=== PATIENT | female | born 1995 | race Caucasian/White ===

== ENCOUNTER 2019-06-19 10:50 | Emergency (ER) | payer MEDICAID ==
[2019-06-19 11:36] LABS: BASOPHILS % (AUTO) 0.5 % (0.0-5.0); EOSINOPHILS % (AUTO) 1.9 % (0.0-8.0); HEMATOCRIT 39.7 % (36-48); LYMPHOCYTES % (AUTO) 21.6 % (21.0-51.0); MEAN CORPUSCULAR HEMOGLOBIN 31.5 pg (27.0-33.0); MEAN CORPUSCULAR VOLUME 92.5 fL (79-99); NEUTROPHILS % (AUTO) 68.3 % (40.0-77.0); PLATELET COUNT (AUTO) 215 K/uL (130-400); RED BLOOD CELL COUNT(AUTO) 4.29 MIL/uL (4.00-5.50); WHITE BLOOD COUNT (AUTO) 9.7 K/uL (4.8-10.8)
[2019-06-19 11:45] LABS: APPEARANCE,URINE Clear (CLEAR); BILIRUBIN,URINE Negative (NEGATIVE); COLOR,URINE Yellow (YELLOW); GLUCOSE, URINE (UA) Negative (NEGATIVE); KETONES,URINE Negative (NEGATIVE); LEUKOCYTE ESTERASE ,URINE Negative (NEGATIVE); NITRATE,URINE Negative (NEGATIVE); OCCULT BLOOD,URINE Negative (NEGATIVE); PH,URINE 6.5 (5.0-8.0); PROTEIN,URINE Negative (NEGATIVE)
[2019-06-19 11:46] LABS: CREATININE 1.1 mg/dL (0.5-1.5)
[2019-06-19 11:52] LABS: INR 0.97 (0.85-1.15); PARTIAL THROMBOPLASTIN TIME 26.4 SEC (26.3-35.5); PROTHROMBIN TIME 10.5 SEC (9.6-11.6)
[2019-06-19 12:12] LABS: ALBUMIN 3.3 g/dL (3.5-5.0); BILIRUBIN,TOTAL 0.5 mg/dL (0.2-1.0); TOTAL PROTEIN, SERUM 7.3 g/dL (6.0-8.3)
== END 2019-06-19 14:19 | disposition home or self-care (01) ==
LOC: EDH 10:50
DX: O20.0 Threatened abortion (principal); I10 Essential (primary) hypertension; Z3A.01 Less than 8 weeks gestation of pregnancy; Z88.5 Allergy status to narcotic agent
CPT/HCPCS: 36415; 76801; 80053; 81003; 84702; 85025; 85610; 85730; 86900; 86901

== ENCOUNTER 2024-11-06 09:30 | Inpatient (IN) | payer SELFPAY ==
[~2024-11-06] VITALS: Ht 170.2 cm; Wt 85.9 kg
[~2024-11-06 09:30] MED LIST: NITR100C4 PO
[2024-11-06 10:03] LABS: IMMATURE GRANULOCYTE ABSOLUTE 0.03 K/uL (0-1); NUCLEATED RED BLOOD CELLS 0.0 % (0.0-0.19); PLATELET COUNT (AUTO) 260 K/uL (130-400); RED BLOOD CELL COUNT(AUTO) 4.20 MIL/uL (4.00-5.50); RED CELL DISTRIBUTION WIDTH 12.3 % (11.0-15.5); WHITE BLOOD COUNT (AUTO) 6.9 K/uL (4.8-10.8)
[2024-11-06 10:09] LABS: CREATININE 1.1 mg/dL (0.5-1.0); GLOMERULAR FILTR. RATE CALC 69.0 mL/min (>90); GLUCOSE,RANDOM 116.0 mg/dL (70-105); SODIUM SERUM 140.0 mmol/L (136-145); UREA NITROGEN, BLOOD 14.0 mg/dL (7-18)
[2024-11-06] MEDS: 0.9%NACL 1000ML 1,000 ML IV ONE (10:13)
--- NOTE | 2024-11-06 10:16 | ERN ---
General Chief Complaint: Flank Pain Stated Complaint: FLANK PAIN Time Seen by MD: 09:32 Source: patient History of Present Illness Initial Comments Patient is a 29-year-old female coming in with left flank pain. Patient states that the pain initiates in the lower back region radiating to the left inguinal area. She quantifies the pain at 10/10 sharp radiating to the inguinal area. She also complains of mild nauseousness. Allergies: Coded Allergies: meperidine (Unverified Allergy, Unknown, HIVES, 12/19/23) Home Meds Active Scripts Nitrofurantoin Monohyd/M-Cryst (Macrobid 100 mg Capsule) 100 Mg Capsule, 100 MG PO BID for 5 Days, #10 CAP Prov:MAGUE BULL MD 12/19/23 Past Medical History Past Medical History: Other Medical History Other: gastric bypass Past Surgical History: Bariatric Surgery Female( History) : 5 Para: 2 Aborts: 2 ROS Dictation CONSTITUTIONAL: No chills, no fever, no weakness, no diaphoresis, no malaise. HEAD/FACE: No signs of trauma. EENT: No eye pain, no blurred vision, no tearing, no double vision, no ear pain, no ear discharge, no nose pain, no nasal congestion, no throat pain, no throat swelling, no mouth pain. RESPIRATORY: No cough, no orthopnea, no SOB, no stridor, no wheezing. CARDIOVASCULAR: No chest pain, no edema, no palpitations, no syncope. GASTROINTESTINAL/ABDOMINAL: abdominal pain, no constipation, no diarrhea, no nausea, no vomiting. GENITOURINARY: No abnormal discharge, no dysuria, no frequent urination, no hematuria. No complaints of pain in the genitals. MUSCULOSKELETAL: No back pain, no gout, no joint pain, no joint swelling, no muscle pain, no muscle stiffness, no neck pain. INTEGUMENTARY: No change in color, no change in hair/nails, no dryness, no lesion, no lumps, no rash. NEUROLOGICAL/PSYCH: No anxiety, not depressed, no emotional problem, no headache, no numbness, no pre-existing deficit, no history of seizures, no ashok mors, no weakness. HEMATOLOGIC/LYMPHATIC: Not anemic, no history of blood clots, no apparent bleeding, no bruising, glands not swollen. All Systems Negative, Except as Noted. Physical Exam Physical Exam Dictation VITAL SIGNS: Reviewed. GENERAL APPEARANCE: Alert, oriented x3, no acute distress, obese. HEAD AND FACE: Non-traumatic. EYES: PERRL, pink conjunctivas, eyelid no trauma, anterior chamber clear. EARS: Pinnas intact and no signs of trauma or erythema. Ear canals clear and no discharge. TMs no erythema. NOSE: No discharge, no bleeding. OROPHARYNX: Mouth normal, teeth no caries, tongue pink. Pharynx clear, no erythema. Tonsils no exudates, no abscesses noted. Mucous membrane moist. NECK: Supple, non-tender, no thyromegaly, no masses, no JVD, no bruits. BREAST: Deferred. CHEST: No tenderness, no crepitus, no paradoxical movement, no retractions. LUNGS: Clear, well-ventilated, symmetric, no rales, no wheezing, no rhonchi, no stridor, good breath sounds bilaterally. HEART: Regular rate, regular rhythm, no murmur, no gallops. VASCULAR: No peripheral edema. ABDOMEN: Soft, positive bowel sounds, nondistended, no guarding, left flank tenderness on palpation, no rebound, no masses no hepatomegaly, no splenomegaly, no Shay's sign, no hernias. RECTAL: Deferred. GENITAL: Deferred. NEUROLOGICAL: Normal speech, gross motor function intact, gross sensory function intact. MUSCULOSKELETAL: Neck nontender, full range of motion, back nontender, full range of motion. EXTREMITIES: Nontender, full range of motion. SKIN: Color pink, dry, no turgor, no rash, no lacerations, no abrasions, no contusions. LYMPHATICS: Deferred. Results Laboratory and Microbiology Lab and Micro Result Laboratory Tests Test 11/06/24 09:47 11/06/24 12:51 White Blood Count 6.9 K/uL (4.8-10.8) Red Blood Count 4.20 MIL/uL (4.00-5.50) Hemoglobin 13.8 g/dL (12.0-16.0) Hematocrit 39.8 % (36-48) Mean Corpuscular Volume 94.8 fL (79-99) Mean Corpuscular Hemoglobin 32.9 pg (27.0-33.0) Mean Corpuscular Hemoglobin Concent 34.7 g/dL (32.0-36.0) Red Cell Distribution Width 12.3 % (11.0-15.5) Platelet Count 260 K/uL (130-400) Mean Platelet Volume 10.0 fL (7.5-10.5) Immature Granulocyte % (Auto) 0.4 % (0-1) Neutrophils (%) (Auto) 59.4 % (40.0-77.0) Lymphocytes (%) (Auto) 29.4 % (21.0-51.0) Monocytes (%) (Auto) 5.4 % (3.0-13.0) Eosinophils (%) (Auto) 4.5 % (0.0-8.0) Basophils (%) (Auto) 0.9 % (0.0-5.0) Neutrophils # (Auto) 4.1 K/uL (1.8-7.7) Lymphocytes # (Auto) 2.0 K/uL (1.0-4.8) Monocytes # (Auto) 0.4 K/uL (0.1-1.0) Eosinophils # (Auto) 0.31 K/uL (0.00-0.70) Basophils # (Auto) 0.06 K/uL (0.00-0.20) Absolute Immature Granulocyte (auto 0.03 K/uL (0-1) Nucleated Red Blood Cells 0.0 % (0.0-0.19) Sodium Level 140 mmol/L (136-145) Potassium Level 4.6 mmol/L (3.5-5.1) Chloride Level 104 mmol/L (101-111) Carbon Dioxide Level 29 mmol/L (21-32) Blood Urea Nitrogen 14 mg/dL (7-18) Creatinine 1.1 mg/dL (0.5-1.0) H Glomerular Filtration Rate Calc 69 mL/min (>90) Random Glucose 116 mg/dL (70-105) H Total Calcium 9.6 mg/dL (8.5-10.1) Urine Color YELLOW (YELLOW) Urine Appearance CLEAR (CLEAR) Urine pH 6.5 (5.0-8.0) Urine Specific [place] 1.024 (1.001-1.031) Urine Protein NEGATIVE mg/dL (NEGATIVE) Urine Glucose (UA) NEGATIVE mg/dL (NEGATIVE) Urine Ketones NEGATIVE mg/dL (NEGATIVE) Urine Occult Blood MODERATE (NEGATIVE) H Urine Nitrate NEGATIVE (NEGATIVE) Urine Bilirubin NEGATIVE mg/dL (NEGATIVE) Urine Urobilinogen 0.2 mg/dL (0.2-1.0) Urine Leukocyte Esterase NEGATIVE Caroline/uL Urine RBC 2-5 /HPF (0-1) H Urine WBC 0-1 /HPF (0-1) Urine Squamous Epithelial Cells FEW /HPF (0-2) Urine Bacteria None /HPF (None Seen) Urine HCG, Qualitative NEGATIVE (NEGATIVE) Urine Opiates Screen NEGATIVE (NEGATIVE) Urine Barbiturates Screen NEGATIVE (NEGATIVE) Urine Phencyclidine Screen NEGATIVE (NEGATIVE) Urine Amphetamines Screen NEGATIVE (NEGATIVE) Urine Benzodiazepines Screen NEGATIVE (NEGATIVE) Urine Cocaine Screen NEGATIVE (NEGATIVE) Urine Marijuana (THC) Screen POSITIVE (NEGATIVE) H Labs Reviewed?: Yes EKG/XRAY/US/CT/MRI CT Scan Comment [place] [id number] [place] [id number] IMAGING REPORT Signed PATIENT: WENCESLAO WHITE MR#: [id number] : 1995 SEX: F AGE: 29 LOCATION: [facility] ORDER 31 STATUS: REG ER REPORT#: [id number] SERVICE 133 REASON: left flank ORDERING PHYSICIAN: XENIA DAMON MD PROCEDURE: ABD PEL WO - CT ABDOMEN/PELVIS W/O CONTRAST EXAM: CT Abdomen and Pelvis Without IV contrast CLINICAL HISTORY: left flank TECHNIQUE: Axial computed tomography images of the abdomen and pelvis without intravenous contrast. CONTRAST: No IV contrast. COMPARISON: None provided. FINDINGS: LUNG BASES: The lung bases appear clear. No pleural effusions are seen. LIVER: The liver appears enlarged in size with the right lobe measuring 20 cm, suggestive of hepatomegaly. Periportal oedema present. GALLBLADDER AND BILE DUCTS: The gallbladder appears within normal limits. No radioopaque gallstones are seen. No biliary ductal dilatation is evident. PANCREAS: Unremarkable. SPLEEN: Unremarkable. ADRENAL GLANDS: Unremarkable. KIDNEYS, URETERS, AND BLADDER: 6 mm sized calculus (mean density 1192 HU) in the left pelviureteric junction with back pressure changes in the form of mild hydronephrosis with perinephric fluid and fat stranding. The left kidney appears bulky. The right kidney appears within normal limits. STOMACH AND BOWEL: Stomach postsurgical changes. No evidence of bowel obstruction. No evidence suggesting enteritis or colitis. APPENDIX: No evidence of acute appendicitis on CT examination. PERITONEUM: No free fluid. No free air. LYMPH NODES: No lymphadenopathy is evident. REPRODUCTIVE: Unremarkable as visualized. VASCULATURE: No evidence of abdominal aortic aneurysm. BONES: No aggressive appearing osseous lesion. No acute osseous pathology evident. IMPRESSION: 1. Left pelviureteric junction 6 mm calculus with mild hydronephrosis, perinephric fluid and fat stranding. 2. Hepatomegaly /[place] DICTATED BY: SHAYNE GARZA Jr., MD DATE: 11/06/241624 ELECTRONICALLY SIGNED BY: SHAYNE GARZA Jr., MD DATE: 11/06/241624 MDM MDM: Differential diagnosis:, intractable pain,ureter stone Rationale: Tests considered and ordered secondary to shared decision making include: Previous outside records reviewed: Old ER visits. Risk of complication and/or morbidity or mortality of patient management: None Medications-Per medication reconciliation Need for hospitalization: Patient does meet criteria for hospitalization. Need for emergency major/minor surgery: No There are no social concerns with this patient. Prescription drug management Prescriptions will include symptomatic care Patient's prior external medical records from other ER visits were reviewed by me as indicated. Prior testing and results from previous visits were reviewed. Prior tests were taken into account with medical decision making and resource utilization, independent historian/historians were used to obtain complete medic al history. I independently interpreted the test that were performed, results were reviewed by me and considered findings on radiology if ordered. Medical management and examination interpretation discussions were had by me with other qualified healthcare professionals as indicated for the patient's care. Patient will be admitted under the care of hospitalist group for ongoing management. ED Course Orders Procedure Category Date Status Time Cbc With Differential LAB 11/06/24 Complete :34 Basic Metabolic Panel LAB 11/06/24 Complete 09:34 Urinalysis LAB 11/06/24 Complete W/Microscopic 09:34 0.9%Nacl 1000ml (Ns PHA 11/06/24 Complete 1000ml) 10:00 Ondansetron 4mg Inj PHA 11/06/24 Complete (Zofran 4mg Inj) 10:15 Ondansetron 4mg Inj PHA 11/06/24 Complete (Zofran 4mg Inj) 10:30 Pantoprazole 40mg Inj PHA 11/06/24 Complete (Protonix 40mg Inj 10:30 Ketorolac PHA 11/06/24 Complete Tromethamine 30mg/Ml 10:30 ,Urine Test LAB 11/06/24 Complete 12:02 Drug Screen Urine LAB 11/06/24 Complete 12:50 Ct Abdomen/Pelvis W/O CT 11/06/24 Resulted Contrast 13:30 Current Medications Medications (Trade) Dose Ordered Sig/Nathaniel Route PRN Reason Start Time Stop Time Status Last Admin Dose Admin Ketorolac Tromethamine (toRADol) 30 mg ONCE ONCE IVP 11/06/24 10:30 11/06/24 10:31 DC 11/06/24 10:36 Ondansetron HCl (zoFRAN 4MG INJ) 4 mg ONCE ONCE IVP 11/06/24 10:30 11/06/24 10:31 DC 11/06/24 10:27 Ondansetron HCl (zoFRAN 4MG INJ) 4 mg STK-MED ONCE .ROUTE 11/06/24 10:15 11/06/24 10:15 DC Pantoprazole Sodium (PROTonix 40MG INJ) 40 mg ONCE ONCE IVP 11/06/24 10:30 11/06/24 10:31 DC 11/06/24 10:36 Sodium Chloride 1,000 ml @ 0 mls/hr ONCE ONCE IV 11/06/24 10:00 11/06/24 10:01 DC 11/06/24 10:13 Vital Signs Date Time Temp Pulse Resp B/P (MAP) Pulse Ox O2 Delivery O2 Flow Rate FiO2 11/06/24 14:54 97.3 66 18 115/79 99 Room Air* 0 21 11/06/24 09:34 97.3 64 18 119/80 99 Room Air* 0 21 11/06/24 09:31 97.3 64 18 119/80 99 Room Air 0 DX & DISP Disposition: Inpatient Decision to Admit Time: 16:26 Departure Impression: Primary Impression: Ureteral stone Additional Impression: Intractable pain Condition: Stable Referrals: SELF,REFERRAL (PCP) XENIA DAMON MD Nov 06, 2024 10:16
[2024-11-06 13:01] LABS: APPEARANCE,URINE CLEAR (CLEAR); GLUCOSE, URINE (UA) NEGATIVE (NEGATIVE); LEUKOCYTE ESTERASE ,URINE NEGATIVE Leu/uL (NEGATIVE); NITRATE,URINE NEGATIVE (NEGATIVE); OCCULT BLOOD,URINE MODERATE (NEGATIVE)
[2024-11-06 13:07] LABS: AMPHET/METH SCREEN,URINE NEGATIVE (NEGATIVE); BARBITURATE SCREEN, URINE NEGATIVE (NEGATIVE); CANNABINOID SCREEN,URINE POSITIVE (NEGATIVE); COCAINE SCREEN,URINE NEGATIVE (NEGATIVE)
[2024-11-06 13:20] LABS: SQUAMOUS EPITHELIAL CELL,UR FEW /HPF (0-2)
--- NOTE | 2024-11-06 15:26 | HMCIMG ---
EXAM: CT Abdomen and Pelvis Without IV contrast CLINICAL HISTORY: left flank TECHNIQUE: Axial computed tomography images of the abdomen and pelvis without intravenous contrast. CONTRAST: No IV contrast. COMPARISON: None provided. FINDINGS: LUNG BASES: The lung bases appear clear. No pleural effusions are seen. LIVER: The liver appears enlarged in size with the right lobe measuring 20 cm, suggestive of hepatomegaly. Periportal oedema present. GALLBLADDER AND BILE DUCTS: The gallbladder appears within normal limits. No radioopaque gallstones are seen. No biliary ductal dilatation is evident. PANCREAS: Unremarkable. SPLEEN: Unremarkable. ADRENAL GLANDS: Unremarkable. KIDNEYS, URETERS, AND BLADDER: 6 mm sized calculus (mean density 1192 HU) in the left pelviureteric junction with back pressure changes in the form of mild hydronephrosis with perinephric fluid and fat stranding. The left kidney appears bulky. The right kidney appears within normal limits. STOMACH AND BOWEL: Stomach postsurgical changes. No evidence of bowel obstruction. No evidence suggesting enteritis or colitis. APPENDIX: No evidence of acute appendicitis on CT examination. PERITONEUM: No free fluid. No free air. LYMPH NODES: No lymphadenopathy is evident. REPRODUCTIVE: Unremarkable as visualized. VASCULATURE: No evidence of abdominal aortic aneurysm. BONES: No aggressive appearing osseous lesion. No acute osseous pathology evident. IMPRESSION: 1. Left pelviureteric junction 6 mm calculus with mild hydronephrosis, perinephric fluid and fat stranding. 2. Hepatomegaly /[place]
--- NOTE | 2024-11-06 17:44 | HP ---
[facility] HISTORY AND PHYSICAL Date of Service: Nov 06, 2024 Time of Service: 17:44 HISTORY OF PRESENT ILLNESS: 29-year-old female with past medical history of gastric bypass surgery who presented to the hospital secondary to pain in the left flank area. Patient states her pain started today which is primarily located in the left flank, left lower quadrant. Pain would radiate towards her left groin area. She describes the pain as sharp in nature and when she presented to the hospital pain was 10/10 in intensity. She had associated nausea without any emesis. She denied any fever, chills, chest pain, shortness of breath, dysuria. Patient denied any hematuria. She has a history of gastric bypass surgery which was done two years ago. She is currently tolerating regular food at home. She takes multivitamins. Secondary to non improving symptoms patient thereafter came to the hospital further evaluation. Labs in the ED were notable for white count of 6.9, hemoglobin was 13.8, platelet count was 260 K, sodium was 140, potassium was 4.6, creatinine was 1.1, blood glucose was 116, procaine was negative, calcium was 9.[address] abdomen pelvis which showed left pelvic ureteral junction stone measuring 6 mm she was noted to have mild hydronephrosis with perinephric stranding. Left kidney was noted to be bulky. She also was noted to have hepatomegaly In the ED patient received Toradol, Zofran. REVIEW OF SYSTEMS CONSTITUTIONAL: Denies fevers, chills, or night sweats. No unintentional weight loss reported. NEUROLOGICAL: Denies headache, amaurosis fugax, motor weakness, sensory deficit, vertigo/spinning sensation, gait abnormalities, or tremors. ENT: No hearing loss, otalgia, otorrhea, rhinitis, rhinorrhea, hoarseness, or sore throat. CARDIOVASCULAR: Denies any exertional angina, dyspnea on exertion, orthopnea, paroxysmal nocturnal dyspnea, palpitations, life-threatening arrhythmias, mark ication. PULMONARY: Denies any shortness of breath, cough, phlegm/sputum, hemoptysis, pleuritic chest pain. SLEEP: Denies morning headaches, daytime somnolence or napping. Denies difficulty falling asleep, staying asleep, waking from sleep. Denies knowledge of snoring. GASTROINTESTINAL: Positive for nausea. Denied any vomiting, melena, hematochezia GENITOURINARY: Denies frequency, urgency, nocturia, hematuria or incontinence (Storage/Irritative symptoms.) Low urinary stream, straining to void, urinary intermittency or hesitancy, splitting of the voiding stream, terminal dribbling. Positive for left-sided flank pain ENDOCRINOLOGIC: Denies polyuria, polydipsia, polyphagia or heat/cold intolerances. HEMATOLOGIC: Denies thrombophilia/previous clots, or coagulopathy/bleeding disorders. ONCOLOGIC: Denies personal history of malignancy. DERMATOLOGIC: Denies rashes or pruritus. PSYCHIATRIC: Denies any suicidal or homicidal ideation. Denies hallucinations. PAST MEDICAL HISTORY: History of gastric bypass surgery PAST SURGICAL HISTORY: History of , history of gastric bypass PAST SOCIAL HISTORY: Denied any smoking, alcohol, drug use FAMILY HISTORY: Denied any pertinent family history Coded Allergies: meperidine (Unverified Allergy, Unknown, HIVES, 12/19/23) PHYSICAL EXAM GENERAL APPEARANCE: The patient is awake, alert, and oriented, in no acute cardiopulmonary distress. NEUROLOGICAL: Cranial nerves II-XII grossly intact. Motor is 5/5 in bilateral upper and lower extremities proximal to distal. No sensory deficits. HEENT: Face is symmetric. Pupils are equal and reactive. Extraocular movements are intact. NECK: Supple. No JVD. No thyromegaly. No submental, submandibular, pre- /postauricular, occipital or supraclavicular lymphadenopathy. CHEST: Normal chest expansion. No Telemetry. LUNGS: Absence of any rales, rhonchi or any wheezing. CARDIOVASCULAR: Regular. S1 and S2 normal. No appreciable rubs, murmurs or gallops. ABDOMEN: Soft, nontender, and nondistended. There is no rebound, voluntary guarding, or rigidity. : Deferred. No Garcia. EXTREMITIES: Non-edematous and not cyanotic. No clubbing. Good capillary refill. SKIN: No skin breakdown. Vital Sign (Last 24 Hours) 11/06/24 14:54 Temp 97.3 Pulse 66 Resp 18 B/P (MAP) 115/79 Pulse Ox 99 O2 Delivery Room Air* O2 Flow Rate 0 FiO2 21 LABS: Laboratory: Test 11/06/24 12:51 11/06/24 09:47 Range/Units Urine Color YELLOW YELLOW Urine Appearance CLEAR CLEAR Urine pH 6.5 5.0-8.0 Urine Specific [place] 1.024 1.001-1.031 Urine Protein NEGATIVE NEGATIVE mg/dL Urine Glucose (UA) NEGATIVE NEGATIVE mg/dL Urine Ketones NEGATIVE NEGATIVE mg/dL Urine Occult Blood MODERATE H NEGATIVE Urine Nitrate NEGATIVE NEGATIVE Urine Bilirubin NEGATIVE NEGATIVE mg/dL Urine Urobilinogen 0.2 0.2-1.0 mg/dL Urine Leukocyte Esterase NEGATIVE NEGATIVE Caroline/uL Urine RBC 2-5 H 0-1 /HPF Urine WBC 0-1 0-1 /HPF Urine Squamous Epithelial Cells FEW 0-2 /HPF Urine Bacteria None None Seen /HPF Urine HCG, Qualitative NEGATIVE NEGATIVE Urine Opiates Screen NEGATIVE NEGATIVE Urine Barbiturates Screen NEGATIVE NEGATIVE Urine Phencyclidine Screen NEGATIVE NEGATIVE Urine Amphetamines Screen NEGATIVE NEGATIVE Urine Benzodiazepines Screen NEGATIVE NEGATIVE Urine Cocaine Screen NEGATIVE NEGATIVE Urine Marijuana (THC) Screen POSITIVE H NEGATIVE White Blood Count 6.9 4.8-10.8 K/uL Red Blood Count 4.20 4.00-5.50 MIL/uL Hemoglobin 13.8 12.0-16.0 g/dL Hematocrit 39.8 36-48 % Mean Corpuscular Volume 94.8 79-99 fL Mean Corpuscular Hemoglobin 32.9 27.0-33.0 pg Mean Corpuscular Hemoglobin Concent 34.7 32.0-36.0 g/dL Red Cell Distribution Width 12.3 11.0-15.5 % Platelet Count 260 130-400 K/uL Mean Platelet Volume 10.0 7.5-10.5 fL Immature Granulocyte % (Auto) 0.4 0-1 % Neutrophils (%) (Auto) 59.4 40.0-77.0 % Lymphocytes (%) (Auto) 29.4 21.0-51.0 % Monocytes (%) (Auto) 5.4 3.0-13.0 % Eosinophils (%) (Auto) 4.5 0.0-8.0 % Basophils (%) (Auto) 0.9 0.0-5.0 % Neutrophils # (Auto) 4.1 1.8-7.7 K/uL Lymphocytes # (Auto) 2.0 1.0-4.8 K/uL Monocytes # (Auto) 0.4 0.1-1.0 K/uL Eosinophils # (Auto) 0.31 0.00-0.70 K/uL Basophils # (Auto) 0.06 0.00-0.20 K/uL Absolute Immature Granulocyte (auto 0.03 0-1 K/uL Nucleated Red Blood Cells 0.0 0.0-0.19 % Sodium Level 140 136-145 mmol/L Potassium Level 4.6 3.5-5.1 mmol/L Chloride Level 104 101-111 mmol/L Carbon Dioxide Level 29 21-32 mmol/L Blood Urea Nitrogen 14 7-18 mg/dL Creatinine 1.1 H 0.5-1.0 mg/dL Glomerular Filtration Rate Calc 69 >90 mL/min Random Glucose 116 H 70-105 mg/dL Total Calcium 9.6 8.5-10.1 mg/dL DIAGNOSTICS / RADIOLOGY: [ ] ASSESSMENT: Symptomatic left-sided nephrolithiasis with 6 mm stone in the pelviureteric junction with associated mild left hydronephrosis History of gastric bypass surgery PLAN: - patient to be admitted to medical-surgical unit -in reference to left-sided kidney stone. Patient will be started on NS for gentle hydration. Patient will be on Toradol for pain control. Continue with Flomax. We will request consultation with Urology. Patient's urine will be strained. -obtain home medications she will be reconciled once available -further orders per hospitalization course. Plan of care was discussed with patient at bedside Advanced Care Planning Which of the following were discussed: Hospice care: Yes __ No _x_ Therapeutic options: Yes __ No __ Advance directives: Yes __ No __ Other discussions: Pt is full code Discussed with who?: patient (Patient, family or surrogates) Voluntary nature of this service was explained to the patient? Yes _x_ No __ Amount of time spent: 20 minutes RAMIN Peña MD, MD Nov 06, 2024 17:44
[2024-11-06] MEDS: 0.9%NACL 1000ML 1,000 ML IV SCH (18:22)
[2024-11-06] MEDS: FAMOTIDINE 20MG VIAL IV SCH (20:49)
--- NOTE | 2024-11-06 22:29 | NUR ---
REPORT GIVEN TO LALO ALBERTS
--- NOTE | 2024-11-06 23:20 | NUR ---
Dr. Wu in to see patient, new order for IVP w/tomogram in the AM. Patient aware.
[2024-11-06 23:38] VITALS: BP 149/74; PULSE 74; RESP 20; TEMP 98.4
[2024-11-07] VITALS: BP 149/74; PULSE 74; RESP 20; TEMP 98.4
--- NOTE | 2024-11-07 03:32 | CONS ---
RENAL CONSULTATION HISTORY OF PRESENT ILLNESS: Dear Dr. Nascimento, I had the pleasure of seeing your patient. She was seen in consultation for evaluation of left flank pain. This is a 29-year-old female status post gastric bypass, presents with left flank pain of 2-3 days' duration. Apparently, it is very intense with nausea, no vomiting. Currently, she is completely pain-free. CT scan showed a 6-mm proximal ureteric stone, partially obstructing with mild hydronephrosis on the left hand side. The patient denies any prior history of kidney stones in the past. ALLERGIES: Reported as none. MEDICATIONS: Include Toradol as well as Flomax, p.r.n. pain medication, Protonix, and Zofran for nausea. PAST MEDICAL HISTORY: Significant for that being no hypertension, no heart attack or stroke in the past. PAST SURGICAL HISTORY: and gastric bypass. REVIEW OF SYSTEMS: No shortness of breath or chest pain. Appetite is good. No nausea, vomiting, constipation, or diarrhea. No headaches, dizziness or nosebleed. No joint pain, joint swelling, limitation of movement, night sweats, fever, chills, or skin rash. PHYSICAL EXAMINATION: GENERAL: Adult female in no distress, whatsoever. VITAL SIGNS: Her current temperature is 97, blood pressure 115/80 with a pulse of 66. NECK: No adenopathy or supraclavicular masses palpable. LUNGS: Lung gonzalez are clear to auscultation. CARDIOVASCULAR: Heart sounds are best heard in the fifth intercostal space, midclavicular line. ABDOMEN: Full, soft, and nontender. BACK: No CVA tenderness. GENITALIA AND RECTAL: Examination are deferred. LABORATORY DATA: Reviewed in detail. Urinalysis shows clear yellow urine with specific gravity of 1.024. Proteins, glucose, ketones negative. She has some blood in the urine, a total of 2-5 rbc's per high-power field. The patient's drug test is positive for marijuana. The patient's white count is 6.9, hematocrit is 39 while her platelet count is 260. Sodium 140, potassium 4.6, and BUN and creatinine are 14/1.1. IMAGING STUDIES: Reviewed today include a CT scan of the abdomen and pelvis, noncontrast showing a 6-mm proximal ureteric stone with mild hydronephrosis. ASSESSMENT: * Renal colic, improved. * Proximal ureteric stone, left side. * Nausea and vomiting, improved. RECOMMENDATIONS: * For the patient to have a functional study with an IVP with tomograms. * If she has high-grade obstruction on left side, proceed with nephrostomy tube placement on the left hand side. * If IVP documents no significant obstruction, the patient may be discharged home with conservative treatment to include Flomax 0.4 mg once a day with medical responsive therapy. * She will have to follow up with her PCP for referral to Urology for definite treatment of her stone and on the left proximal ureter. * Finally, the patient's concerns were answered. Thank you for the opportunity for providing urologic consultation on your patient. TID: [id number] RECEIPT: [id number]
[2024-11-07 04:00] VITALS: BP 135/85; PULSE 81; RESP 20; TEMP 99.2
[2024-11-07 07:06] LABS: IMMATURE GRANULOCYTE ABSOLUTE 0.03 K/uL (0-1); NUCLEATED RED BLOOD CELLS 0.0 % (0.0-0.19); PLATELET COUNT (AUTO) 218 K/uL (130-400); RED BLOOD CELL COUNT(AUTO) 4.09 MIL/uL (4.00-5.50); RED CELL DISTRIBUTION WIDTH 12.4 % (11.0-15.5); WHITE BLOOD COUNT (AUTO) 10.7 K/uL (4.8-10.8)
[2024-11-07 07:35] LABS: CREATININE 1.5 mg/dL (0.5-1.0); GLOMERULAR FILTR. RATE CALC 47.0 mL/min (>90); GLUCOSE,RANDOM 104.0 mg/dL (70-105); SODIUM SERUM 142.0 mmol/L (136-145); UREA NITROGEN, BLOOD 16.0 mg/dL (7-18)
[2024-11-07 08:00] VITALS: O2SAT 98
[2024-11-07 08:22] VITALS: BP 126/74; PULSE 61; RESP 18; TEMP 99.2
--- NOTE | 2024-11-07 12:00 | NUR ---
SPOKE TO SHIRA FROM X-RAY, STATES IVP TOMOGRAM TO BE DONE TOMORROW DUE TO FEEDER SWITCHBOARD OPERATOR FOR EXAM UNAVAILABLE TODAY. SPOKE WITH SMALL KICK PRESS OPERATOR, STATES FEEDER SWITCHBOARD OPERATOR NOT ABLE TO BE PAGED FOR EXAM TO BE DONE TODAY. PATIENT AND WENCESLAO BENEFITS ADMINISTRATOR MADE AWARE. PT STATES CANNOT STAY OVERNIGHT DUE TO CONCERN FOR CHILDREN STARTING SCHOOL TOMORROW, MADE AWARE IF SHE WERE TO LEAVE TODAY IT WILL BE AGAINST MEDICAL ADVICE, VERBALIZED UNDERSTANDING. DR. PEPE AT BEDSIDE, DISCUSSED WITH PATIENT AND SPOUSE AT BEDSIDE SIGNS AND SYMPTOMS TO SEEK EMERGENCY CARE, TO TAKE ORDERED MEDICATIONS PRESCRIBED, TO ARRANGE FOLLOW UP WITH PCP SOON POSSIBLE, VERBALIZED UNDERSTANDING. CHARLENE AGUILA MADE AWARE.
[2024-11-07 12:04] VITALS: BP 137/79; PULSE 76; RESP 18; TEMP 98.9
--- NOTE | 2024-11-07 12:28 | DS ---
Discharge Summary Hospital Course Summary: 29-year-old female with past medical history of gastric bypass surgery who presented to the hospital secondary to pain in the left flank area. Patient states her pain started today which is primarily located in the left flank, left lower quadrant. Pain would radiate towards her left groin area. She describes the pain as sharp in nature and when she presented to the hospital pain was 10/10 in intensity. She had associated nausea without any emesis. She denied any fever, chills, chest pain, shortness of breath, dysuria. Patient denied any hematuria. She has a history of gastric bypass surgery which was done two years ago. She is currently tolerating regular food at home. She takes multivitamins. Secondary to non improving symptoms patient thereafter came to the hospital further evaluation. Labs in the ED were notable for white count of 6.9, hemoglobin was 13.8, platelet count was 260 K, sodium was 140, potassium was 4.6, creatinine was 1.1, blood glucose was 116, procaine was negative, calcium was 9.[address] abdomen pelvis which showed left pelvic ureteral junction stone measuring 6 mm she was noted to have mild hydronephrosis with perinephric stranding. Left kidney was noted to be bulky. She also was noted to have hepatomegaly The patient was seen by urologist: recommendations: * For the patient to have a functional study with an IVP with tomograms.* If she has high-grade obstruction on left side, proceed with nephrostomy tube placement on the left hand side. However the patient will not proceed with procedure she states she think she passed the stone.and it adamant about going home. She signed and consent: AMA Assessment/Plan: Discharged Symptomatic left-sided nephrolithiasis with 6 mm stone in the pelviureteric junction with associated mild left hydronephrosis History of gastric bypass surgery PLAN: Left AMA: Flomax 0.4 gm po daily, Cefdinir 300mg po bid x5 days advice to drink plenty of fluids throughout the day: discussed risks leaving AMA. verbalized understanding. Discharge Instructions: REASON: left flank ORDERING PHYSICIAN: XENIA DAMON MD PROCEDURE: ABD PEL WO - CT ABDOMEN/PELVIS W/O CONTRAST EXAM: CT Abdomen and Pelvis Without IV contrast CLINICAL HISTORY: left flank TECHNIQUE: Axial computed tomography images of the abdomen and pelvis without intravenous contrast. CONTRAST: No IV contrast. COMPARISON: None provided. FINDINGS: LUNG BASES: The lung bases appear clear. No pleural effusions are seen. LIVER: The liver appears enlarged in size with the right lobe measuring 20 cm, suggestive of hepatomegaly. Periportal oedema present. GALLBLADDER AND BILE DUCTS: The gallbladder appears within normal limits. No radioopaque gallstones are seen. No biliary ductal dilatation is evident. PANCREAS: Unremarkable. SPLEEN: Unremarkable. ADRENAL GLANDS: Unremarkable. KIDNEYS, URETERS, AND BLADDER: 6 mm sized calculus (mean density 1192 HU) in the left pelviureteric junction with back pressure changes in the form of mild hydronephrosis with perinephric fluid and fat stranding. The left kidney appears bulky. The right kidney appears within normal limits. STOMACH AND BOWEL: Stomach postsurgical changes. No evidence of bowel obstruction. No evidence suggesting enteritis or colitis. APPENDIX: No evidence of acute appendicitis on CT examination. PERITONEUM: No free fluid. No free air. LYMPH NODES: No lymphadenopathy is evident. REPRODUCTIVE: Unremarkable as visualized. VASCULATURE: No evidence of abdominal aortic aneurysm. BONES: No aggressive appearing osseous lesion. No acute osseous pathology evident. IMPRESSION: 1. Left pelviureteric junction 6 mm calculus with mild hydronephrosis, perinephric fluid and fat stranding. 2. Hepatomegaly /[facility] Medications: Active Scripts Nitrofurantoin Monohyd/M-Cryst (Macrobid 100 mg Capsule) 100 Mg Capsule, 100 MG PO BID for 5 Days, #10 CAP Prov:MAGUE BULL MD 12/19/23 Time spent arranging discharge: 31-60 minutes ATTESTATION BY PHYSICIAN I have seen and examined the patient. I reviewed the documentation, medical decision making, and treatment plan as noted by the mid-level provider above. I agree with the findings and plan of care. REA PEPE MD, ELIZABETH NP Nov 07, 2024 12:27
== END 2024-11-07 13:05 | disposition left against medical advice (07) | DRG 694 ==
LOC: EDH 09:30 → EDHIP 09:31 → UNDOADMIN 17:38 → 4BH 22:37
PROVIDERS: ADMIT Internal Medicine; ATTEND Internal Medicine
DX: N13.2 Hydronephrosis with renal and ureteral calculous obstruction (principal); Z98.84 Bariatric surgery status; Z98.891 History of uterine scar from previous surgery; Z53.29 Procedure and treatment not carried out because of patient's decision for other reasons
CPT/HCPCS: 36415; 74176; 80048; 80305; 81001; 81025; 83036; 84145; 84439; 84443; 84481; 85025; 86140; 96374; 96375; 99285; G0378; J0696; J1885; J2405; J2470; J3490; J7030